=== PATIENT | male | born 1985 | race Caucasian/White ===

== ENCOUNTER 2019-09-11 06:30 | Emergency (ER) | payer OTHER ==
[2019-09-11] MEDS ORDERED: Ondansetron 4 MG/2 ML SDV IVPUSH ONE (06:39)
[2019-09-11] MEDS ORDERED: Ketorolac 30 MG/ML SDV IVPUSH ONE (06:39)
[2019-09-11] MEDS ORDERED: Sodium Chloride 0.9% 1,000 ML IV SCH (06:45)
[2019-09-11] MEDS ORDERED: Morphine 2 MG/ML Syringe IVPUSH ONE (07:35)
[2019-09-11] MEDS ORDERED: Tamsulosin 0.4 MG Cap.ER PO ONE (07:37)
[2019-09-11] MEDS: Sodium Chloride 0.9% 10 ML Syringe FLUSH PRN ×2 (08:01→08:52)
--- NOTE | 2019-09-11 08:35 | EDM.PDOC ---
ED HPI GENERAL MEDICAL PROBLEM - General Chief Complaint: Flank Pain Stated Complaint: KIDNEY STONE Time Seen by Provider: 09/11/19 07:00 Source of Information: Reports: Patient History Limitations: Reports: No Limitations - History of Present Illness INITIAL COMMENTS - FREE TEXT/NARRATIVE: Patient presented to the ED because of sudden onset of left flank pain at 0630. The pain is sharp,9/10, over the left flank area radiating to the left testicle. There is no associated nausea,vomiting,fever or chills. left flank and groin Pain Score (Numeric/FACES): 5 - Related Data Allergies Allergy/AdvReac Type Severity Reaction Status Date / Time No Known Allergies Allergy Verified 09/11/19 07:05 Home Meds: Home Meds Acetaminophen/oxyCODONE [Percocet 325-5 MG] 1 - 2 each PO Q4H #20 tab 09/11/19 [ Rx] Cyproheptadine HCl 8 mg PO BEDTIME 09/11/19 [History] Gabapentin [Neurontin] 1,200 mg PO ASDIRECTED PRN 09/11/19 [History] Mirtazapine 15 mg PO BEDTIME 09/11/19 [History] Ondansetron [Zofran ODT] 4 mg PO Q4H PRN #10 tab.dis 09/11/19 [Rx] Sertraline HCl [Zoloft] 400 mg PO DAILY 09/11/19 [History] Tamsulosin HCl [Flomax] 0.4 mg PO DAILY #10 cap.er.24h 09/11/19 [Rx] Past Medical History Genitourinary History: Reports: Renal Calculus Psychiatric History: Reports: Anxiety, Depression, PTSD, Suicide Attempt - Past Surgical History HEENT Surgical History: Reports: Tonsillectomy Male Surgical History: Reports: Renal Calculus Social & Family History - Tobacco Use Smoking Status *Q: Never Smoker - Caffeine Use Caffeine Use: Reports: None - Recreational Drug Use Recreational Drug Use: No ED ROS GENERAL - Review of Systems Review Of Systems: See Below Constitutional: Reports: No Symptoms HEENT: Reports: No Symptoms Respiratory: Reports: No Symptoms Cardiovascular: Reports: No Symptoms Endocrine: Reports: No Symptoms GI/Abdominal: Reports: Abdominal Pain : Reports: Flank Pain Musculoskeletal: Reports: No Symptoms Skin: Reports: No Symptoms Neurological: Reports: No Symptoms ED EXAM, RENAL/ - Physical Exam Exam: See Below Exam Limited By: No Limitations General Appearance: Alert, No Apparent Distress Ears: Normal External Exam, Normal Canal, Hearing Grossly Normal Nose: Normal Inspection, Normal Mucosa, No Blood Throat/Mouth: Normal Inspection, Normal Lips, Normal Teeth, Normal Gums Head: Atraumatic, Normocephalic Neck: Normal Inspection, Supple, Non-Tender, Full Range of Motion Respiratory/Chest: No Respiratory Distress, Lungs Clear, Normal Breath Sounds, No Accessory Muscle Use Cardiovascular: Normal Peripheral Pulses, Regular Rate, Rhythm, No Edema, No Gallop, No JVD, No Murmur GI/Abdominal: Normal Bowel Sounds, Soft, Other (left CVAT) Back Exam: Normal Inspection, Full Range of Motion Extremities: Normal Inspection, Normal Range of Motion, Non-Tender, No Pedal Edema Course - Vital Signs Text/Narrative:: Labs,CT abd/pelvis was discussed with patient and verbalized full understanding NS 1 L bolus Toradol 30 mg IV,Mprphine 4 mg IV,dilaudid 2 mg IV and his pain is down to a 2/ 10 prior to discharge, Urology consult was done with Dr Contreras who thinks patient can be discharge to home because he is afebrile,normal wbc and kidney function and pain is adequately controlled. He was the advised to follow up with him with next available appointment. Last Recorded V/S: Last Vital Signs Temp 36.4 C 09/11/19 08:38 Pulse 59 L 09/11/19 08:38 Resp 14 09/11/19 08:38 BP 124/84 09/11/19 08:38 Pulse Ox 100 09/11/19 08:38 - Orders/Labs/Meds Orders: Active Orders 24 hr Category Date Time Status Abdomen Pelvis wo Cont [CT] Stat Exams 09/11/19 07:33 Taken Sodium Chloride 0.9% [Normal Saline] 1,000 ml Med 09/11/19 06:45 Active IV ASDIRECTED Sodium Chloride 0.9% [Saline Flush] Med 09/11/19 07:00 Active 10 ml FLUSH ASDIRECTED PRN Peripheral IV Insertion Adult [OM.PC] Routine Oth 09/11/19 07:00 Ordered Medication Orders Sodium Chloride (Normal Saline) 1,000 mls @ 999 mls/hr IV ASDIRECTED [facility] Last Admin: 09/11/19 07:08 Dose: 999 mls/hr Sodium Chloride (Saline Flush) 10 ml FLUSH ASDIRECTED PRN PRN Reason: Keep Vein Open Last Admin: 09/11/19 08:52 Dose: 10 ml Admin: 09/11/19 08:01 Dose: 10 ml Labs: Laboratory Tests 09/11/19 09/11/19 09/11/19 Range/Units 06:45 06:45 06:45 WBC 9.2 (4.5-12.0) X10-3/uL RBC 5.31 (4.30-5.75) x10(6)uL Hgb 15.4 (13.5-17.8) g/dL Hct 45.0 (30.0-51.3) % MCV 84.8 (80-96) fL MCH 29.1 (27.7-33.6) pg MCHC 34.2 (32.2-35.4) g/dL RDW 12.5 (11.5-15.5) % Plt Count 372 H (125-369) X10(3)uL MPV 6.8 L (7.4-10.4) fL Neut % (Auto) 57.0 (46-82) % Lymph % (Auto) 33.2 (13-37) % [place] % (Auto) 6.6 (4-12) % Eos % (Auto) 3 (1.0-5.0) % Baso % (Auto) 1 (0-2) % Neut # (Auto) 5.3 (1.6-8.3) # Lymph # (Auto) 3.0 (0.6-5.0) # [place] # (Auto) 0.6 (0.0-1.3) # Eos # (Auto) 0.2 (0.0-0.8) # Baso # (Auto) 0.1 (0.0-0.2) # Sodium 143 (135-145) mmol/L Potassium 3.9 (3.5-5.3) mmol/L Chloride 104 (100-110) mmol/L Carbon Dioxide 28 (21-32) mmol/L BUN 16 (7-18) mg/dL Creatinine 1.3 (0.70-1.30) mg/dL Est Cr Clr Drug Dosing TNP Estimated GFR (MDRD) > 60 (>60) BUN/Creatinine Ratio 12.3 (9-20) Glucose 104 (80-116) mg/dL Calcium 9.1 (8.6-10.2) mg/dL Urine Color Yellow (YELLOW) Urine Appearance Clear (CLEAR) Urine pH 5.0 (5.0-6.5) Ur Specific [place] 1.030 H (1.010-1.025) Urine Protein Trace (NEGATIVE) mg/dL Urine Glucose (UA) Normal (NORMAL) mg/dL Urine Ketones Negative (NEGATIVE) mg/dL Urine Occult Blood Large H (NEGATIVE) Urine Nitrite Negative (NEGATIVE) Urine Bilirubin Negative (NEGATIVE) Urine Urobilinogen Normal (NEGATIVE) mg/dL Ur Leukocyte Esterase Negative (NEGATIVE) Urine RBC 10-20 H (0-5) Urine WBC 0-5 (0-5) Ur Squamous Epith Cells Occasional (NS,R,O) Urine Bacteria Few H (NS) Meds: Medications Generic Name Dose Route Start Last Admin Trade Name Freq PRN Reason Stop Dose Admin Sodium Chloride 1,000 mls @ 999 mls/hr 09/11/19 06:45 09/11/19 07:08 Normal Saline IV 999 mls/hr ASDIRECTED MANAS Administration Sodium Chloride 10 ml 09/11/19 07:00 09/11/19 08:52 Saline Flush FLUSH 10 ml ASDIRECTED PRN Administration Keep Vein Open Discontinued Medications Generic Name Dose Route Start Last Admin Trade Name Freq PRN Reason Stop Dose Admin Hydromorphone HCl 2 mg 09/11/19 08:46 09/11/19 08:50 Dilaudid IVPUSH 09/11/19 08:47 2 mg ONETIME ONE Administration Ketorolac Tromethamine 30 mg 09/11/19 06:39 09/11/19 07:08 Toradol IVPUSH 09/11/19 06:40 30 mg ONETIME ONE Administration Morphine Sulfate 4 mg 09/11/19 07:35 09/11/19 08:02 Morphine IVPUSH 09/11/19 07:36 Not Given ONETIME ONE Morphine Sulfate 4 mg 09/11/19 08:00 09/11/19 08:02 Morphine IVPUSH 09/11/19 08:01 4 mg ONETIME ONE Administration Ondansetron HCl 4 mg 09/11/19 06:39 09/11/19 07:08 Zofran IVPUSH 09/11/19 06:40 4 mg ONETIME ONE Administration Tamsulosin HCl 0.4 mg 09/11/19 07:37 09/11/19 07:57 Flomax PO 09/11/19 07:38 0.4 mg ONETIME ONE Administration Departure - Departure Time of Disposition: 09:15 Disposition: Home, Self-Care 01 Condition: Good Clinical Impression: Urolithiasis - Discharge Information Prescriptions: Acetaminophen/oxyCODONE [Percocet 325-5 MG] 1 - 2 each PO Q4H #20 tab Ondansetron [Zofran ODT] 4 mg PO Q4H PRN #10 tab.dis PRN Reason: Nausea Tamsulosin HCl [Flomax] 0.4 mg PO DAILY #10 cap.er.24h Instructions: Kidney Stones, [id number] Referrals: PCP,None [Primary Care Provider] - Forms: ED Department Discharge Additional Instructions: Please read discharge instructions on kidney stones Increase oral fluids Flomax 1 tablet daily Zofran ODT 4 mg every 4 hours as needed for nausea Percocet/oxycodone 5/325, take 1-2 tablets every 4-6 hours as needed for pain Call the clinic of dr Contreras(urologist at [facility]) to schedule an appointment for follow up @[phone] Sepsis Event Note - Evaluation Sepsis Screening Result: No Definite Risk - Focused Exam Vital Signs: Vital Signs Temp Temp Pulse Resp BP Pulse Ox 09/11/19 08:38 36.4 C 59 L 14 124/84 100 09/11/19 06:35 36.3 C 123 H 22 H 149/94 H 98 Date Exam was Performed: 09/11/19 Time Exam was Performed: 09:24 - My Orders Last 24 Hours: My Active Orders 09/11/19 07:33 Abdomen Pelvis wo Cont [CT] Stat - Assessment/Plan Last 24 Hours: My Active Orders 09/11/19 07:33 Abdomen Pelvis wo Cont [CT] Stat
[2019-09-11] MEDS ORDERED: HYDROmorphone 2 MG/ML SDV IVPUSH ONE (08:46)
== END 2019-09-11 09:35 | disposition home or self-care (01) ==
LOC: FB.ED 06:30
DX: N20.1 Calculus of ureter (principal); F41.9 Anxiety disorder, unspecified; F32.9 Major depressive disorder, single episode, unspecified; Z87.442 Personal history of urinary calculi; Z79.899 Other long term (current) drug therapy
CPT/HCPCS: 36415; 74176; 80048; 81001; 85025; 96361; 96374; 96375; 99284; A9270; J1170; J1885; J2270; J2405; J7030

== ENCOUNTER 2019-09-13 03:24 | Emergency (ER) | payer OTHER ==
[2019-09-13] MEDS ORDERED: Acetaminophen/oxyCODONE 325-5 MG Tab PO PRN (03:58)
[2019-09-13] MEDS ORDERED: Acetaminophen/oxyCODONE 325-5 MG Tab ONE (04:00)
[2019-09-13] MEDS ORDERED: Sodium Chloride 0.9% 10 ML Syringe FLUSH PRN (04:23)
[2019-09-13] MEDS ORDERED: Sodium Chloride 0.9% 1,000 ML IV ONE (04:24)
[2019-09-13] MEDS ORDERED: HYDROmorphone 2 MG/ML SDV IVPUSH ONE ×2 (04:34→04:55)
--- NOTE | 2019-09-13 04:48 | EDM.PDOC ---
ED HPI GENERAL MEDICAL PROBLEM - General Chief Complaint: Genitourinary Problem Stated Complaint: KIDNEY STONES Time Seen by Provider: 09/13/19 04:20 Source of Information: Reports: Patient History Limitations: Reports: No Limitations - History of Present Illness INITIAL COMMENTS - FREE TEXT/NARRATIVE: Patient developed left flank pain on 09/11/19, was treated at [facility] and found to have left ureterolithiasis. CT Abd/Pelvis w/o contrast showed left- sided obstructive uropathy due to 5 mm left ureteral calculus just beyond the UPJ and a 1 mm calculus just distal to this. He was prescribed Percocet, Zofran and Flomax. Pain was tolerable on the Percocet, however ran out of the medication at 2130 last night. Since then the pain has been severe. Denies N/V, has been drinking fluids. Patient attempted to make an appointment with Urology , but was unable because a referral was needed. His primary physician is at [facility]. Onset Date: 09/11/19 - Related Data Allergies Allergy/AdvReac Type Severity Reaction Status Date / Time No Known Allergies Allergy Verified 09/13/19 04:54 Home Meds: Home Meds Acetaminophen/oxyCODONE [Percocet 325-5 MG] 1 - 2 each PO Q4H #20 tab 09/11/19 [ Rx] Cyproheptadine HCl 8 mg PO BEDTIME 09/11/19 [History] Gabapentin [Neurontin] 1,200 mg PO ASDIRECTED PRN 09/11/19 [History] Mirtazapine 15 mg PO BEDTIME 09/11/19 [History] Ondansetron [Zofran ODT] 4 mg PO Q4H PRN #10 tab.dis 09/11/19 [Rx] Sertraline HCl [Zoloft] 400 mg PO DAILY 09/11/19 [History] Tamsulosin HCl [Flomax] 0.4 mg PO DAILY #10 cap.er.24h 09/11/19 [Rx] Past Medical History Genitourinary History: Reports: Renal Calculus, Other (See Below) Other Genitourinary History: Kidney stones, left and right side. Psychiatric History: Reports: Anxiety, Depression, PTSD, Suicide Attempt, Other (See Below) Other Psychiatric History: Night terrors. - Past Surgical History HEENT Surgical History: Reports: Tonsillectomy Male Surgical History: Reports: Renal Calculus Social & Family History - Tobacco Use Smoking Status *Q: Former Smoker Used Tobacco, but Quit: No - Caffeine Use Caffeine Use: Reports: None ED ROS GENERAL - Review of Systems Review Of Systems: Comprehensive ROS is negative, except as noted in HPI. ED EXAM, RENAL/ - Physical Exam Exam: See Below Exam Limited By: No Limitations General Appearance: Alert, Mild Distress Throat/Mouth: No Airway Compromise Head: Atraumatic, Normocephalic Neck: Full Range of Motion Respiratory/Chest: No Respiratory Distress, Lungs Clear, Normal Breath Sounds Cardiovascular: Regular Rate, Rhythm, No Murmur GI/Abdominal: Soft, Non-Tender, No Distention Back Exam: CVA Tenderness (L) Neurological: Alert, Normal Cognition Psychiatric: Normal Affect, Normal Mood Skin Exam: Warm, Dry, Intact Course - Vital Signs Last Recorded V/S: Last Vital Signs Temp 36.9 C 09/13/19 03:25 Pulse 87 09/13/19 03:25 Resp 18 09/13/19 03:25 BP 133/91 H 09/13/19 03:25 Pulse Ox 98 09/13/19 03:25 - Orders/Labs/Meds Orders: Active Orders 24 hr Category Date Time Status CULTURE URINE [RM] Stat Lab 09/13/19 04:16 Ordered Sodium Chloride 0.9% [Normal Saline] 1,000 ml Med 09/13/19 04:24 Ordered IV .BOLUS Sodium Chloride 0.9% [Saline Flush] Med 09/13/19 04:23 Ordered 10 ml FLUSH ASDIRECTED PRN Saline Lock Insert [OM.PC] Routine Oth 09/13/19 04:23 Ordered Medication Orders Sodium Chloride (Normal Saline) 1,000 mls @ 999 mls/hr IV .BOLUS ONE Stop: 09/13/19 05:24 Sodium Chloride (Saline Flush) 10 ml FLUSH ASDIRECTED PRN PRN Reason: Keep Vein Open Labs: Laboratory Tests 09/13/19 09/13/19 09/13/19 Range/Units 03:35 03:48 03:48 WBC 9.3 (4.5-12.0) X10-3/uL RBC 5.04 (4.30-5.75) x10(6)uL Hgb 13.9 (13.5-17.8) g/dL Hct 43.1 (30.0-51.3) % MCV 85.5 (80-96) fL MCH 27.6 L (27.7-33.6) pg MCHC 32.3 (32.2-35.4) g/dL RDW 12.3 (11.5-15.5) % Plt Count 361 (125-369) X10(3)uL MPV 6.9 L (7.4-10.4) fL Neut % (Auto) 72.4 (46-82) % Lymph % (Auto) 19.1 (13-37) % [place] % (Auto) 6.5 (4-12) % Eos % (Auto) 1 (1.0-5.0) % Baso % (Auto) 1 (0-2) % Neut # (Auto) 6.7 (1.6-8.3) # Lymph # (Auto) 1.8 (0.6-5.0) # [place] # (Auto) 0.6 (0.0-1.3) # Eos # (Auto) 0.1 (0.0-0.8) # Baso # (Auto) 0.1 (0.0-0.2) # Sodium 141 (135-145) mmol/L Potassium 3.7 (3.5-5.3) mmol/L Chloride 103 (100-110) mmol/L Carbon Dioxide 28 (21-32) mmol/L BUN 16 (7-18) mg/dL Creatinine 1.8 H (0.70-1.30) mg/dL Est Cr Clr Drug Dosing 62.75 mL/min Estimated GFR (MDRD) 44 L (>60) BUN/Creatinine Ratio 8.9 L (9-20) Glucose 110 (80-116) mg/dL Calcium 8.9 (8.6-10.2) mg/dL Urine Color Yellow (YELLOW) Urine Appearance Cloudy (CLEAR) Urine pH 6.0 (5.0-6.5) Ur Specific [place] 1.020 (1.010-1.025) Urine Protein 30 H (NEGATIVE) mg/dL Urine Glucose (UA) Normal (NORMAL) mg/dL Urine Ketones 15 H (NEGATIVE) mg/dL Urine Occult Blood Large H (NEGATIVE) Urine Nitrite Negative (NEGATIVE) Urine Bilirubin Negative (NEGATIVE) Urine Urobilinogen Normal (NEGATIVE) mg/dL Ur Leukocyte Esterase Moderate H (NEGATIVE) Urine RBC >100 H (0-5) Urine WBC 5-10 H (0-5) Ur Squamous Epith Cells Few H (NS,R,O) Urine Bacteria Few H (NS) Meds: Medications Generic Name Dose Route Start Last Admin Trade Name Freq PRN Reason Stop Dose Admin Sodium Chloride 1,000 mls @ 999 mls/hr 09/13/19 04:24 Normal Saline IV 09/13/19 05:24 .BOLUS ONE Sodium Chloride 10 ml 09/13/19 04:23 Saline Flush FLUSH ASDIRECTED PRN Keep Vein Open Discontinued Medications Generic Name Dose Route Start Last Admin Trade Name Freq PRN Reason Stop Dose Admin Oxycodone/Acetaminophen 2 tab 09/13/19 03:58 09/13/19 04:02 Percocet 325-5 Mg PO 2 tab ONETIME PRN Administration Pain Oxycodone/Acetaminophen Confirm 09/13/19 04:00 09/13/19 04:03 Percocet 325-5 Mg Administered 09/13/19 04:01 Not Given Dose 2 tab .ROUTE .STK-MED ONE - Re-Assessments/Exams Free Text/Narrative Re-Assessment/Exam: 09/13/19 04:40 Percocet 5/325 x 2 tabs given w/o improvement. 09/13/19 04:55 1L NS IV ordered, Dilaudid 0.5 mg IV given. Patient reports no improvement of pain. Another Dilaudid 1 mg IV ordered. 09/13/19 04:56 Patient care discussed with Dr. Hayward ([facility]), recommends transfer to [facility] for double J stent procedure. Dr. Kim ( Hospitalist) accepts patient for transfer. Departure - Departure Time of Disposition: 04:58 Disposition: DC/Tfer to Acute Hospital 02 Condition: Fair Clinical Impression: Ureterolithiasis, VÍCTOR (acute kidney injury) - Discharge Information *PRESCRIPTION DRUG MONITORING PROGRAM REVIEWED*: Yes *COPY OF PRESCRIPTION DRUG MONITORING REPORT IN PATIENT SHILA: No Referrals: PCP,None [Primary Care Provider] - Sepsis Event Note - Evaluation Sepsis Screening Result: No Definite Risk - Focused Exam Vital Signs: Vital Signs Temp Pulse Resp BP Pulse Ox 09/13/19 03:25 36.9 C 87 18 133/91 H 98 Date Exam was Performed: 09/13/19 Time Exam was Performed: 04:31 - My Orders Last 24 Hours: My Active Orders 09/13/19 04:16 CULTURE URINE [RM] Stat 09/13/19 04:23 Sodium Chloride 0.9% [Saline Flush] 10 ml FLUSH ASDIRECTED PRN Saline Lock Insert [OM.PC] Routine 09/13/19 04:24 Sodium Chloride 0.9% [Normal Saline] 1,000 ml IV .BOLUS - Assessment/Plan Last 24 Hours: My Active Orders 09/13/19 04:16 CULTURE URINE [RM] Stat 09/13/19 04:23 Sodium Chloride 0.9% [Saline Flush] 10 ml FLUSH ASDIRECTED PRN Saline Lock Insert [OM.PC] Routine 09/13/19 04:24 Sodium Chloride 0.9% [Normal Saline] 1,000 ml IV .BOLUS
== END 2019-09-13 05:20 ==
LOC: FB.ED 03:24
DX: N17.9 Acute kidney failure, unspecified (principal); N20.1 Calculus of ureter; F41.9 Anxiety disorder, unspecified; F32.9 Major depressive disorder, single episode, unspecified; Z87.442 Personal history of urinary calculi; Z87.891 Personal history of nicotine dependence
CPT/HCPCS: 36415; 80048; 81001; 85025; 87086; 96361; 96374; 99285-25; A9270-GY; J1170; J7030

== ENCOUNTER 2023-08-20 07:31 | Day surgery (SDC) | payer OTHER ==
[2023-08-20] MEDS ORDERED: Lactated Ringers 1,000 ML IV ONE (07:32)
[2023-08-20] MEDS ORDERED: HYDROmorphone 2 MG/ML SDV IV ONE (07:32)
[2023-08-20] MEDS ORDERED: Midazolam 1 MG/ML 2 ML SDV IV ONE (07:32)
[2023-08-20] MEDS ORDERED: Dexamethasone 4 MG/ML SDV IV ONE (07:32)
[2023-08-20] MEDS ORDERED: Propofol 200 MG/20 ML SDV IV ONE (07:32)
[2023-08-20] MEDS ORDERED: fentaNYL 100 MCG/2 ML SDV IV ONE (07:32)
[2023-08-20] MEDS ORDERED: dexmedeTOMIDine HCl 200 MCG/2 ML SDV IV ONE (07:32)
[2023-08-20] MEDS ORDERED: Ketorolac 30 MG/ML SDV IVPUSH ONE (07:32)
[2023-08-20] MEDS ORDERED: Sodium Chloride 0.9% 10 ML Syringe FLUSH PRN (07:45)
[2023-08-20] MEDS: Lactated Ringers 1,000 ML IV SCH (09:15)
[2023-08-20] MEDS: ceFAZolin 2 GM Vial IVPUSH ONE (10:15)
[2023-08-20] MEDS: Bupivacaine 0.5% 30 ML SDV INJECT ONE (10:39)
[2023-08-20] MEDS: Lidocaine 1% with EPINEPHrine 1:100,000 20 ML MDV INJECT ONE ×2 (10:39→13:30)
[2023-08-20] MEDS ORDERED: Naloxone 0.4 MG/ML SDV IVPUSH PRN (12:34)
[2023-08-20] MEDS: Morphine 2 MG/ML SYRINGE IVPUSH ONE ×3 (12:41→13:49)
[2023-08-20] MEDS: Ondansetron 4 MG/2 ML SDV IVPUSH ONE (12:44)
[2023-08-20] MEDS: HYDROmorphone 2 MG/ML SDV IVPUSH ONE (13:19)
[2023-08-20] MEDS ORDERED: HYDROmorphone 2 MG/ML SDV ONE (13:21)
[2023-08-20] MEDS: Bupivacaine 0.5% 50 ML MDV INJECT ONE (13:30)
== END 2023-08-20 16:22 | disposition home or self-care (01) ==
LOC: FB.SDS 07:31
PROVIDERS: ATTEND Surgery
DX: K40.90 Unilateral inguinal hernia, without obstruction or gangrene, not specified as recurrent (principal); F32.A Depression, unspecified; Z87.891 Personal history of nicotine dependence; Z98.890 Other specified postprocedural states; Z79.899 Other long term (current) drug therapy
CPT/HCPCS: 76870; C1758; C1781; J0665; J0690; J1100; J1170; J1885; J2250; J2270; J2405; J2704; J3010; J3490; J7120

== ENCOUNTER 2023-12-23 21:25 | Emergency (ER) | payer OTHER | END 2023-12-24 01:50 | disposition home or self-care (01) | LOC: FB.ED 21:25 | DX: M25.811 Other specified joint disorders, right shoulder (principal); F17.290 Nicotine dependence, other tobacco product, uncomplicated; Z79.899 Other long term (current) drug therapy | CPT/HCPCS: 73030-RT; 99283 ==

== ENCOUNTER 2024-10-11 13:27 | Emergency (ER) | payer OTHER ==
[2024-10-11] MEDS ORDERED: Acetaminophen/oxyCODONE 325-5 MG Tab PO ONE (13:28)
[2024-10-11] MEDS ORDERED: Sodium Chloride 0.9% 10 ML Syringe FLUSH PRN (13:43)
[2024-10-11] MEDS ORDERED: Naloxone 0.4 MG/ML SDV IVPUSH PRN (13:43)
[2024-10-11] MEDS: HYDROmorphone 2 MG/ML SDV IVPUSH ONE ×2 (13:53→14:16)
[2024-10-11] MEDS: Ondansetron 4 MG/2 ML SDV IVPUSH ONE (13:54)
[2024-10-11] MEDS: Sodium Chloride 0.9% 1,000 ML IV ONE ×2 (13:54→15:10)
[2024-10-11 14:07] LABS: BLOOD UREA NITROGEN,BUN 17 mg/dL (7-18); BUN/CREATININE RATIO 11.3 (9-20); CALCIUM 9.1 mg/dL (8.6-10.2); CARBON DIOXIDE,CO2 30 mmol/L (21-32); CHLORIDE,CL 103 mmol/L (100-110); CREATININE 1.5 mg/dL (0.70-1.30); ESTIMATED GFR 61 mL/min (>60); GLUCOSE RANDOM 113 mg/dL (80-116); POTASSIUM,K 3.8 mmol/L (3.5-5.3); SODIUM,NA 140 mmol/L (135-145)
[2024-10-11 14:13] LABS: A/G RATIO 1.2; ALANINE AMINOTRANSFERASE,ALT 42 U/L (12-36); ALBUMIN 4.3 g/dL (3.5-5.2); ALKALINE PHOSPHATASE 73 IU/L (56-112); ASPARTATE AMNIOTRANSFERASE,AST 17 IU/L (5-25); BASOPHILS ABSOLUTE AUTO 0.1 x10-3/uL (0.0-0.3); BILIRUBIN TOTAL 0.6 mg/dL (0.1-1.3); EOSINOPHILS ABSOLUTE AUTO 0.1 x10-3/uL (0.0-0.6); EOSINOPHILS PERCENT AUTO 1.9 % (0.1-6.8); HEMATOCRIT 42.3 % (38.3-50.1); HEMOGLOBIN 15.1 g/dL (12.9-17.7); LYMPHOCYTES ABSOLUTE AUTO 3.4 x10-3/uL (0.5-4.5); LYMPHOCYTES PERCENT AUTO 46.1 % (15.8-45.3); MEAN CORPUSCULAR HEMOGLOBIN 30.4 pg (27.0-33.3); MEAN CORPUSCULAR HGB CONC 35.6 g/dL (28.7-35.3); MEAN CORPUSCULAR VOLUME 85.3 fL (80.8-98.7); MEAN PLATELET VOLUME 6.7 fL (6.7-11.0); MONOCYTES ABSOLUTE AUTO 0.5 x10-3/uL (0.0-1.2); MONOCYTES PERCENT AUTO 6.6 % (5.5-15.2); NEUTROPHILS ABSOLUTE AUTO 3.2 x10-3/uL (1.7-6.9); NEUTROPHILS PERCENT AUTO 44.4 % (40.3-71.8); PLATELET COUNT,PLT 316 x10(3)uL (117-477); PROTEIN TOTAL,TP 7.9 g/dL (6.0-8.0); RED BLOOD CELL COUNT 4.96 x10(6)uL (3.90-5.90); RED CELL DISTRIBUTION WIDTH 13.4 % (12.4-15.0); WHITE BLOOD CELL COUNT,WBC 7.3 x10-3/uL (3.2-10.1)
[2024-10-11] MEDS: Tamsulosin 0.4 MG Cap.ER PO ONE (15:52)
[2024-10-11 16:01] LABS: BILIRUBIN,URINE NEGATIVE (NEGATIVE); GLUCOSE,URINE NORMAL (NORMAL); KETONES,URINE NEGATIVE (NEGATIVE); LEUKOCYTE ESTERASE,URINE NEGATIVE (NEGATIVE); NITRITE,URINE NEGATIVE (NEGATIVE); OCCULT BLOOD,URINE LARGE (NEGATIVE); PROTEIN,URINE TRACE mg/dL (NEGATIVE); UROBILINOGEN,URINE NORMAL (NEGATIVE)
[2024-10-11 16:08] LABS: APPEARANCE,URINE SLIGHTLY CLOUDY (CLEAR); COLOR,URINE YELLOW (YELLOW)
[2024-10-11 16:09] LABS: BACTERIA,URINE FEW (NS); RBC,URINE 30-40 (0-5); SQUAMOUS EPITHELIAL CELLS,UR FEW (NS,R,O); WBC,URINE NOT SEEN (0-5)
== END 2024-10-11 16:30 | disposition home or self-care (01) ==
LOC: FB.ED 13:27
DX: N20.0 Calculus of kidney (principal); Z79.899 Other long term (current) drug therapy; E66.9 Obesity, unspecified
CPT/HCPCS: 36415; 74176; 80053; 81001; 83735; 85025; 86140; 96361; 96374; 96375; 96376; 99284; A9270; J1171; J2405; J3360; J7030